=== PATIENT | female | born 1980 ===

== ENCOUNTER 2019-01-26 22:41 | Inpatient (IN) | payer MEDICAID ==
[~2019-01-26] VITALS: Ht 170.2 cm; Wt 60.0 kg
[2019-01-26] MEDS ORDERED: NEXIUM40 MG PO (22:46)
[2019-01-26 23:28] LABS: HEMATOCRIT 39.5 % (36.0-48.0); HEMOGLOBIN 13.8 g/dL (12-16); LYMPHOCYTES 13.5 % (15-50); MCH 32.9 pg (26.0-34.0); MCHC 34.9 g/dL (31.0-37.0); MEAN PLATELET VOLUME 9.2 fL (7.4-10.4); NEUTROPHILS 77.1 % (40-80); PLATELET COUNT 284 10x3/uL (130-400); RDW 16.8 % (11.5-14.5); WBC 10.7 10x3/uL (4.8-10.8)
[2019-01-26 23:41] LABS: APPEARANCE CLOUDY (CLEAR); BILIRUBIN NEGATIVE (NEGATIVE); COLOR YELLOW (YELLOW); GLUCOSE NEGATIVE (NEGATIVE); HCG URINE NEGATIVE (NEGATIVE); KETONE SMALL mg/dL (NEGATIVE); NITRITE NEGATIVE (NEGATIVE); PROTEIN 3+ mg/dL (NEGATIVE); SPECIFIC GRAVITY 1.025 (1.005-1.020); UROBILINOGEN NORMAL (NORMAL)
[2019-01-26 23:43] LABS: AMORPHOUS SEDIMENT >1+ /lpf (NONE SEEN); BACTERIA FEW /hpf (NONE SEEN); EPITHELIAL CELLS 0-5 /hpf (0-5); RED CELLS - URINE 0-5 /hpf (0-5); WHITE CELLS - URINE 0-5 /hpf (0-5)
[2019-01-26 23:50] LABS: ALKALINE PHOSPHATASE 82 U/L (46-116); ALT (SGPT) 23 U/L (10-68); AMYLASE - SERUM 172 U/L (25-115); BILIRUBIN - TOTAL 0.49 mg/dL (0.2-1.3); CALC OSMOLALITY 284 mosm/kg (275-300); CALCIUM 9.3 mg/dL (8.5-10.1); CARBON DIOXIDE 29.1 mmol/L (21.0-32.0); CHLORIDE - SERUM 103 mmol/L (98-107); CREATININE - SERUM 0.7 mg/dL (0.6-1.3); GLUCOSE 136 mg/dL (74-106); PROTEIN - SERUM 7.6 g/dL (6.4-8.2); SODIUM 143 mmol/L (136-145); UREA NITROGEN 7 mg/dL (7-18); eGFR NON AFRICAN AMERICAN > 90 mL/min (90-120)
[2019-01-26 23:52] LABS: LIPASE 1888 U/L (73-393)
[2019-01-26 23:53] LABS: POTASSIUM - SERUM 2.8 mmol/L (3.5-5.1)
[2019-01-27] VITALS (9 sets, daily range): BP systolic 122–154; BP diastolic 53–97; Ht 170.2 cm; Wt 60.0 kg
--- NOTE | 2019-01-27 01:00 | NUR ---
PATIENT AWAKE AND ALERT, SITTING UP IN THE BED. UPDATED ON PLAN OF CARE AND DLEAYS IN CARE. WILL CONTINUE TO MONITOR. FAMILY AT BEDSIDE.
--- NOTE | 2019-01-27 02:00 | NUR ---
PATIENT REPORTS DECREASE IN PAIN. SHE IS SITTING UP IN THE BED AWAKE AND ALERT. NO NEEDS NOTED. UPDATED ON PLAN OF CARE AND DELAYS IN CARE. WILL CONTINUE TO MONITOR.
--- NOTE | 2019-01-27 03:04 | NUR ---
REPORT TO LAMIN AT [facility]. ER TO ER TRANSFER.
--- NOTE | 2019-01-27 04:52 | NUR ---
AMBULATING BACK TO BED FROM BATHROOM AFTER VOMITING. GOT HER AN EMESIS BAG. ALERT/ORIENTED X 4. ABD DISTENDED/FIRM. RATES PAIN LEVEL AT 10 ON NUMBER SCALE, DESCRIBED SHARP, CONTRACTION LIKE PAIN. IV IN RT AC WITH NS 40MEQ KCL INFUSING AT 125ML/HR. RN ASSESSMENTS COMPLETED. REQUESTED A/C TURN COOLER. ORIENTED TO CALL LIGHT FOR ANY NEEDS OR DISCOMFORTS.
[2019-01-27 05:18] LABS: BASOPHILS 0.1 % (0-2); EOSINOPHILS 0.3 % (0-7); HEMATOCRIT 34.6 % (36.0-48.0); HEMOGLOBIN 11.6 g/dL (12-16); IMMATURE GRANULOCYTES 0.1 % (0-5); LYMPHOCYTES 11.5 % (15-50); MCH 31.8 pg (26.0-34.0); MCHC 33.5 g/dL (31.0-37.0); MCV 94.8 fL (80.0-100.0); MEAN PLATELET VOLUME 9.5 fL (7.4-10.4); MONOCYTES 8.8 % (2-11); NEUTROPHILS 79.2 % (40-80); RBC 3.65 10x6/uL (4.00-5.40); RDW 16.5 % (11.5-14.5); WBC 9.2 10x3/uL (4.8-10.8)
[2019-01-27 05:22] LABS: PLATELET COUNT 217 10x3/uL (130-400)
[2019-01-27 05:49] LABS: ALBUMIN 3.3 g/dL (3.4-5.0); ALKALINE PHOSPHATASE 76 U/L (46-116); BILIRUBIN - TOTAL 0.39 mg/dL (0.2-1.3); CALCIUM 8.5 mg/dL (8.5-10.1); CARBON DIOXIDE 27.2 mmol/L (21.0-32.0); CHLORIDE - SERUM 107 mmol/L (98-107); GLUCOSE 136 mg/dL (74-106); LIPASE 1144 U/L (73-393); POTASSIUM - SERUM 3.2 mmol/L (3.5-5.1); PROTEIN - SERUM 6.6 g/dL (6.4-8.2); SODIUM 143 mmol/L (136-145)
[2019-01-27 06:10] LABS: ALT (SGPT) 12 U/L (10-68); AMYLASE - SERUM 127 U/L (25-115); CALC OSMOLALITY 283 mosm/kg (275-300); CREATININE - SERUM 0.5 mg/dL (0.6-1.3); UREA NITROGEN 5 mg/dL (7-18); eGFR NON AFRICAN AMERICAN > 90 mL/min (90-120)
--- NOTE | 2019-01-27 08:03 | NUR ---
PT CO SEVERE ABD PAIN. HAS VOMITIED CLEAR LIQUID EMESIS. MEDICATED WITH DILAUDID AND ZOFRAN.
--- NOTE | 2019-01-27 12:11 | NUR ---
WANTING PAIN MED Q 2 HOURS DUE TO SEVERE ABD PAIN. VOMITING UP 100CC YELLOW EMESIS.
--- NOTE | 2019-01-27 13:56 | NUR ---
DR. BROWN HERE. PT ADVANCED TO CLEAR LIQUIDS BUT STARTING OUT WITH ICE CHIPS. INSTRUCTED PT TO START SLOWLY WITH ICE CHIPS. ALSO INSTRUCTED PT THAT PAIN MED DOSE HAS BEEN UP TO 2MG BUT TO BE GIVEN ONLY Q 4 HOURS WITH NAUSEA MEDICATION. PT UNDERSTANDS.
--- NOTE | 2019-01-27 15:25 | NUR ---
PT HAS KEPT ICE CHIPS DOWN. REQUESTING POPSICLE ORANGE GIVEN. ENCOURAGED PT TO TAKE IT SLOW.
--- NOTE | 2019-01-27 16:27 | NUR ---
PT C/O HER R.AC PIV LEAKING. PRIMARY NURSE CURRENTLY OFF THE FLOOR. D/C WITH CATHETER TIP FULLY INTACT AND RESITED HER X1 STICK TO HER R.FA WITH A 20 GUAGE NEEDLE. FLUIDS BACK INFUSING. NO FURTHER NEEDS. WILL DISCUSS WITH PRIMARY NURSE WHEN SHE RETURNS.
--- NOTE | 2019-01-27 18:10 | NUR ---
HAS TOLERATED CLEAR LIQUID DIET
--- NOTE | 2019-01-27 19:30 | NUR ---
BEDSIDE REPORT TAKEN FROM ANGELITA HUDSON. PT SITTING UP IN BED ALERT AND ORIENTED. PT DENIES ANY PAIN OR NEEDS AT THIS TIME. NO S/S OF DISTRESS. MOTHER AT BEDSIDE. BED LOW CALL LIGHT WITHIN REACH. WILL CONTINUE MONITOR.
--- NOTE | 2019-01-28 02:06 | NUR ---
PT RESTING IN BED WITH EYES CLOSED. RR EVEN AND UNLABORED. BED LOW CALL LIGHT WITHIN REACH. WILL CONTINUE TO MONITOR.
--- NOTE | 2019-01-28 03:18 | NUR ---
I have reviewed this patient and I concur with the Shift Assessment completed by the Licensed Practical Nurse today this shift.
[2019-01-28 05:07] LABS: BASOPHILS 0 % (0-2); EOSINOPHILS 1.8 % (0-7); HEMATOCRIT 29.4 % (36.0-48.0); HEMOGLOBIN 9.5 g/dL (12-16); IMMATURE GRANULOCYTES 0.1 % (0-5); LYMPHOCYTES 28.9 % (15-50); MCH 31.5 pg (26.0-34.0); MCHC 32.3 g/dL (31.0-37.0); MEAN PLATELET VOLUME 10.1 fL (7.4-10.4); MONOCYTES 10.3 % (2-11); NEUTROPHILS 58.9 % (40-80); PLATELET COUNT 196 10x3/uL (130-400); RBC 3.02 10x6/uL (4.00-5.40); RDW 17.1 % (11.5-14.5); WBC 7.4 10x3/uL (4.8-10.8)
[2019-01-28 05:13] LABS: MCV 97.4 fL (80.0-100.0)
[2019-01-28 05:21] VITALS: BP 118/70
[2019-01-28 05:32] LABS: ALBUMIN 2.6 g/dL (3.4-5.0); ALKALINE PHOSPHATASE 54 U/L (46-116); ALT (SGPT) 15 U/L (10-68); BILIRUBIN - TOTAL 0.28 mg/dL (0.2-1.3); CALC OSMOLALITY 274 mosm/kg (275-300); CALCIUM 7.9 mg/dL (8.5-10.1); CHLORIDE - SERUM 104 mmol/L (98-107); CREATININE - SERUM 0.5 mg/dL (0.6-1.3); GLUCOSE 102 mg/dL (74-106); LIPASE 811 U/L (73-393); PROTEIN - SERUM 5.6 g/dL (6.4-8.2); SODIUM 139 mmol/L (136-145); UREA NITROGEN 5 mg/dL (7-18); eGFR NON AFRICAN AMERICAN > 90 mL/min (90-120)
[2019-01-28 05:40] LABS: POTASSIUM - SERUM 3.7 mmol/L (3.5-5.1)
--- NOTE | 2019-01-28 07:10 | NUR ---
REPORT RECIEVED FROM REDUCING MACHINE OPERATOR. PATIENT LAYING IN BED ON LEFT SIDE WITH EYES CLOSEED AND BREATHING EVENLY. VSS. WILL CONTINUE WITH PLAN OF CARE. SR UP X 2 BED IN LOW POSITION AND CALL LIGHT IN REACH.
--- NOTE | 2019-01-28 08:37 | NUR ---
CALLED TO PATIENTS ROOM. PATIENT COMPLAINS OF RUQ PAIN AT A "10." MEDICATED PER MAR WITH DILAUDED 1 MG IV AND ZOFRAN IV. VSS. PATIENT TOLERATED WELL. WILL CONTINUE TO MONITOR. SR UP X 2 BED IN LOW POSITION AND CALL LIGHT IN REACH.
--- NOTE | 2019-01-28 09:02 | NUR ---
PATIENT IS LAYING IN BED ON LEFT SIDE WITH EYES CLOSED AND BREATHING EVENLY. WILL CONTINUE TO MONITOR. SR UP X 2 BED IN LOW POSITION AND CALL LIGHT IN REACH.
--- NOTE | 2019-01-28 12:50 | NUR ---
PATIOENT COMPLAINS OF RUQ PAIN AND NAUSEA. MEDICATED PER MAR WITH DILAUDED 1 MG AND ZOFRAN IV. VSS. WILL CONTINUE TO MONITOR PATIENT. SR UP X 2 BED IN LOW POSTION AND CALL LIGHT IN REACH.
[2019-01-28 13:09] VITALS: BP 136/95
--- NOTE | 2019-01-28 15:00 | NUR ---
PATIENT UP TO AMBULATE IN HALLWAY AND TO SHOWER. PATIENT TOLERATED WELL. PATIENT SITTING IN BEDSIDE CHAIR. DENIES ANY NEEDS OR PAIN. WILL CONTINUE TO MONITOR.
[2019-01-28 17:03] VITALS: BP 137/78
--- NOTE | 2019-01-28 18:17 | NUR ---
PATIENT AMUBULATED IN HALLWAY. TOLERATED WELL. PATIENT LAYING IN BED ON BACK RESTING COMFORTABLY. FAMILY AT [facility].
[2019-01-28 20:57] VITALS: BP 130/89
[2019-01-28 23:59] VITALS: BP 130/76
[2019-01-29 05:27] VITALS: BP 124/83; BP 124/833
--- NOTE | 2019-01-29 05:50 | NUR ---
I have reviewed this patient and I concur with the Shift Assessment completed by the Licensed Practical Nurse today this shift.
[2019-01-29 06:05] LABS: BASOPHILS 0.1 % (0-2); EOSINOPHILS 1.6 % (0-7); HEMATOCRIT 32.4 % (36.0-48.0); HEMOGLOBIN 10.6 g/dL (12-16); IMMATURE GRANULOCYTES 0.1 % (0-5); LYMPHOCYTES 30.8 % (15-50); MCH 31.4 pg (26.0-34.0); MCHC 32.7 g/dL (31.0-37.0); MCV 95.9 fL (80.0-100.0); MEAN PLATELET VOLUME 10.3 fL (7.4-10.4); MONOCYTES 7.1 % (2-11); NEUTROPHILS 60.3 % (40-80); PLATELET COUNT 204 10x3/uL (130-400); RBC 3.38 10x6/uL (4.00-5.40); RDW 16.5 % (11.5-14.5); WBC 6.9 10x3/uL (4.8-10.8)
[2019-01-29 06:26] LABS: ALBUMIN 2.6 g/dL (3.4-5.0); ALKALINE PHOSPHATASE 58 U/L (46-116); ALT (SGPT) 16 U/L (10-68); BILIRUBIN - TOTAL 0.19 mg/dL (0.2-1.3); CALCIUM 7.8 mg/dL (8.5-10.1); CARBON DIOXIDE 28.9 mmol/L (21.0-32.0); CHLORIDE - SERUM 101 mmol/L (98-107); CREATININE - SERUM 0.5 mg/dL (0.6-1.3); GLUCOSE 112 mg/dL (74-106); LIPASE 462 U/L (73-393); PROTEIN - SERUM 5.8 g/dL (6.4-8.2); SODIUM 138 mmol/L (136-145); eGFR NON AFRICAN AMERICAN > 90 mL/min (90-120)
[2019-01-29 06:31] LABS: CALC OSMOLALITY 272 mosm/kg (275-300); UREA NITROGEN 2 mg/dL (7-18)
--- NOTE | 2019-01-29 07:15 | NUR ---
REPORT RECIEVED FROM PATROL CONDUCTOR. PATIENT LAYING IN BED ON RT SIDE WITH EYES CLOSED AND BREATHING EVENLY. WILL CONTINUE WITH PLAN OF CARE. SR UP BED IN LOW POSTION AND CALL LIGHT IN REACH.
[2019-01-29 09:19] VITALS: BP 144/94
[2019-01-29 12:44] VITALS: BP 143/97
--- NOTE | 2019-01-29 13:30 | NUR ---
DR HSIEH HERE. NEW ORDERS RECEIVED. PATIENT AMBULATING IN HALLWAY.
[2019-01-29 17:09] VITALS: BP 138/86
[2019-01-29 20:00] VITALS: BP 141/95
--- NOTE | 2019-01-29 20:01 | NUR ---
DR. STEWART PAGED. PT REQUESTING TO GO HOME. PT STATES, "IM FEELING BETTER." PT POTASSIUM LOW. PLACED PT ON EP PROTOCAL TREATED K+ OF 3.0. IV DC'D AND ORDERED NOT TO BE RESTARTED. EXPLAINED TO PT, PT UNDERSTOOD. BED LOW CALL IGHT WITHIN REACH.
[2019-01-30] VITALS: BP 136/78
[2019-01-30 04:00] VITALS: BP 118/75
--- NOTE | 2019-01-30 04:16 | NUR ---
I have reviewed this patient and I concur with the Shift Assessment completed by the Licensed Practical Nurse today this shift.
--- NOTE | 2019-01-30 04:56 | NUR ---
PT RESTING IN BED WITH EYES CLOSED RR EVEN AND UNLABORED. PT LABS BACK. K+ 3.6. BED LOW CALL LIGHT WITHIN REACH. WILL CONTINUE TO MONITOR.
[2019-01-30 06:39] LABS: BASOPHILS 0.2 % (0-2); EOSINOPHILS 1.3 % (0-7); HEMATOCRIT 33.5 % (36.0-48.0); HEMOGLOBIN 11.2 g/dL (12-16); IMMATURE GRANULOCYTES 0.5 % (0-5); LYMPHOCYTES 31.6 % (15-50); MCH 31.5 pg (26.0-34.0); MCHC 33.4 g/dL (31.0-37.0); MCV 94.4 fL (80.0-100.0); MEAN PLATELET VOLUME 10.3 fL (7.4-10.4); MONOCYTES 7.3 % (2-11); NEUTROPHILS 59.1 % (40-80); PLATELET COUNT 242 10x3/uL (130-400); RBC 3.55 10x6/uL (4.00-5.40); RDW 16.3 % (11.5-14.5); WBC 5.5 10x3/uL (4.8-10.8)
[2019-01-30 06:57] LABS: ALBUMIN 2.7 g/dL (3.4-5.0); ALKALINE PHOSPHATASE 60 U/L (46-116); ALT (SGPT) 16 U/L (10-68); BILIRUBIN - TOTAL 0.25 mg/dL (0.2-1.3); CALC OSMOLALITY 274 mosm/kg (275-300); CALCIUM 8.5 mg/dL (8.5-10.1); CARBON DIOXIDE 28.2 mmol/L (21.0-32.0); CHLORIDE - SERUM 102 mmol/L (98-107); CREATININE - SERUM 0.5 mg/dL (0.6-1.3); GLUCOSE 113 mg/dL (74-106); LIPASE 650 U/L (73-393); POTASSIUM - SERUM 3.3 mmol/L (3.5-5.1); PROTEIN - SERUM 6.3 g/dL (6.4-8.2); SODIUM 139 mmol/L (136-145); eGFR NON AFRICAN AMERICAN > 90 mL/min (90-120)
--- NOTE | 2019-01-30 07:10 | NUR ---
REPORT RECEIVED FROM CONTINUOUS YARN DYEING MACHINE OPERATOR. PATIENT LAYING IN BED IN RT SIDE WITH EYES CLOSED AND BREATHING EVENLY. VSS. WILL CONTINUE WITH PLAN OF CARE.
[2019-01-30 07:14] LABS: UREA NITROGEN 1 mg/dL (7-18)
[2019-01-30 08:23] VITALS: BP 112/71
--- NOTE | 2019-01-30 09:30 | NUR ---
PATIENT TO NURSING STATION. STATES THAT SHE WAS TOLD SHE WOULD BE DC EARLY THIS AM. INFORMED PATIENT THAT DR BROWN WILL ROUND AND DC . PATIENT STATED THAT ALL HER FAMILY OUT OF TOWN AND HER ONLY RIDE IS HERE. PATIENT IS TEARY EYED STATING THAT SHE IS REALLY IS IN A BAD SITUATION DUE TO TRANSPORTATION. CALLEDE DR BROWN AND LEFT MESSAGE.
--- NOTE | 2019-01-30 10:44 | NUR ---
PATIENT TO NURSES STATION AGAIN. TEARFUL AND STATES THAT RIDE IS GOING TO LEAVE HER AND SHE HAS TO LEAVE. PATIENT IS STABLE AND VSS. PATIENT SIGNED AMA FORM AND WALKED OUT OF ROOM . DR BROWN NOTIFIED.
--- NOTE | 2019-01-30 16:12 | MORECARE ---
CASE MANAGEMENT DISCHARGE SUMMARY PATIENT: KITA ROMERO UNIT: [id number] ADM DATE: 01/27/19 AGE: 38 : 76 SEX: F ROOM/BED: D.2307 AUTHOR: ANA CANTU PHYSICIAN: REFERRING PHYSICIAN: ARNOL BROWN MD DATE OF SERVICE: 01/30/19 Discharge Plan Patient Name: KITA ROMERO Facility: [facility]:[place] : 1980 Planned Disposition: Left Against Medical Advice Anticipated Discharge Date: 01/30/19 Discharge Date: 01/30/2019 Expected LOS: 3 Initial Reviewer: [email or web address] Initial Review Date: 01/30/2019 Generated: 01/30/19 5:12 pm Patient Name: KITA ROMERO Page [id number] at 1612 All edits/amendments must be made on the electronic document DICTATION DATE: 01/30/19 161 FIRE PROTECTION DESIGNER: DENA 01/30/19 1612 RPT#: [id number] DC DATE:01/30/19 STATUS: DIS IN [facility] [address] [place] [address] END OF REPORT
== END 2019-01-30 10:44 | disposition left against medical advice (07) | DRG 440 ==
LOC: D.ER 22:41 → D.M2 01-27 02:50
PROVIDERS: Family Medicine; ADMIT Family Medicine; ATTEND Family Medicine
DX: K85.20 Alcohol induced acute pancreatitis without necrosis or infection (principal); K86.0 Alcohol-induced chronic pancreatitis; E87.6 Hypokalemia; K21.9 Gastro-esophageal reflux disease without esophagitis

== ENCOUNTER 2020-07-06 10:16 | Emergency (ER) | payer MEDICAID ==
[~2020-07-06] VITALS: Ht 170.2 cm; Wt 56.8 kg
[~2020-07-06 10:16] MED LIST: NEXIUM40 MG PO
[2020-07-06 10:34] VITALS: Ht 170.2 cm; Wt 56.8 kg
[2020-07-06 11:12] LABS: BASOPHILS 0.1 % (0-2); EOSINOPHILS 0.4 % (0-7); HEMATOCRIT 34.2 % (36.0-48.0); HEMOGLOBIN 11.1 g/dL (12-16); IMMATURE GRANULOCYTES 0.2 % (0-5); LYMPHOCYTES 13.8 % (15-50); MCH 29.4 pg (26.0-34.0); MCHC 32.5 g/dL (31.0-37.0); MCV 90.7 fL (80.0-100.0); MEAN PLATELET VOLUME 9.2 fL (7.4-10.4); MONOCYTES 8.7 % (2-11); NEUTROPHILS 76.8 % (40-80); RBC 3.77 10x6/uL (4.00-5.40); RDW 15.9 % (11.5-14.5); WBC 13.6 10x3/uL (4.8-10.8)
[2020-07-06 11:26] LABS: CALC OSMOLALITY 264 mosm/kg (275-300); CALCIUM 8.1 mg/dL (8.5-10.1); CARBON DIOXIDE 27.1 mmol/L (21.0-32.0); CHLORIDE - SERUM 101 mmol/L (98-107); CREATININE - SERUM 0.7 mg/dL (0.6-1.3); GLUCOSE 105 mg/dL (74-106); SODIUM 133 mmol/L (136-145); UREA NITROGEN 9 mg/dL (7-18); eGFR NON AFRICAN AMERICAN > 90 mL/min (90-120)
[2020-07-06 11:30] LABS: PLATELET COUNT 307 10x3/uL (130-400)
[2020-07-06 11:36] LABS: ALBUMIN 3.1 g/dL (3.4-5.0); ALKALINE PHOSPHATASE 95 U/L (30-120); ALT (SGPT) 16 U/L (10-68); AMYLASE - SERUM 42 U/L (25-115); BILIRUBIN - TOTAL 0.43 mg/dL (0.2-1.3); PROTEIN - SERUM 6.4 g/dL (6.4-8.2); TROPONIN-I < 0.017 ng/mL (0.000-0.060)
[2020-07-06 11:39] LABS: LIPASE 31 U/L (73-393)
[2020-07-06 12:06] LABS: HCG SERUM NEGATIVE (NEGATIVE)
[2020-07-06 13:29] LABS: BILIRUBIN NEGATIVE (NEGATIVE); KETONE NEGATIVE (NEGATIVE); NITRITE NEGATIVE (NEGATIVE); UDS - AMPHET POSITIVE QUAL (NEGATIVE); UDS - BARB NEGATIVE QUAL (NEGATIVE); UDS - BENZO NEGATIVE QUAL (NEGATIVE); UDS - COCAINE NEGATIVE QUAL (NEGATIVE); UDS - OPIATE POSITIVE QUAL (NEGATIVE); UDS - PCP NEGATIVE QUAL (NEGATIVE); UDS - THC NEGATIVE QUAL (NEGATIVE); UROBILINOGEN NORMAL (NORMAL)
[2020-07-06 13:33] LABS: EPITHELIAL CELLS 25-50 /hpf (0-5); RED CELLS - URINE 0-5 /hpf (0-5)
[2020-07-06 13:34] LABS: BACTERIA FEW /hpf (NEGATIVE)
[2020-07-06] MEDS ORDERED: LEVAQUIN750 MG PO (13:58)
[2020-07-06 15:16] VITALS: BP 104/59
== END 2020-07-06 15:16 | disposition home or self-care (01) ==
LOC: D.ER 10:16
PROVIDERS: Emergency Medicine
DX: N12 Tubulo-interstitial nephritis, not specified as acute or chronic (principal); R10.31 Right lower quadrant pain; D64.9 Anemia, unspecified; D72.829 Elevated white blood cell count, unspecified; E87.1 Hypo-osmolality and hyponatremia; K21.9 Gastro-esophageal reflux disease without esophagitis